=== PATIENT | male | born 1950 | race Asian ===

== ENCOUNTER 2018-05-04 00:11 | Inpatient (IN) | payer OTHER ==
[~2018-05-04] VITALS: Ht 172.7 cm; Wt 78.0 kg
[2018-05-04 03:36] LABS: PLATELET COUNT 159 x10^3mcL (130-400)
[2018-05-04 03:38] LABS: BASOPHIL % 0 % (0-2)
[2018-05-04 03:42] LABS: CALCIUM 7.8 mg/dL (8.5-10.1); CARBON DIOXIDE 26.4 mmol/L (21-32); CHLORIDE SERUM 105 mmol/L (98-107); CREATININE SERUM 1.1 mg/dL (0.7-1.3); GFR1 > 60 mL/min; GLUCOSE SERUM 115 mg/dL (74-106); POTASSIUM SERUM 3.5 mmol/L (3.5-5.1); SODIUM SERUM 139 mmol/L (136-145)
[2018-05-04 03:43] LABS: ALBUMIN 3.4 g/dL (3.4-5.0); ALKALINE PHOSPHATASE 180 U/L (46-116); ALT/SGPT 181 U/L (16-63); AST/SGOT 328 U/L (15-37); BILIRUBIN TOTAL 3.8 mg/dL (0.20-1.00); LIPASE 145 IU/L (73-393); TOTAL PROTEIN, SERUM 6.3 g/dL (6.4-8.2)
[2018-05-04 05:02] LABS: CHOLESTEROL/HDL RATIO 3.1; MAGNESIUM 1.8 mg/dL (1.8-2.4); PHOSPHOROUS 1.7 mg/dL (2.5-4.9)
[2018-05-04 05:10] LABS: T3 TOTAL 0.83 ng/mL
[2018-05-04 05:46] LABS: FREE T4 1.4 ng/dL (0.76-1.46); FREE THYROXINE INDEX 2.1 ug/dL (1.4-4.5); T4(THYROXINE) 6.3 ug/dL (4.7-13.3)
[2018-05-04] MEDS ORDERED: TAMSULOSIN HYD0.4 M1 PO (07:15)
[2018-05-04] MEDS ORDERED: FINASTERIDE5 M1 PO (07:17)
[2018-05-04 08:55] VITALS: BP 119/78
[2018-05-04 13:15] VITALS: BP 106/67
[2018-05-04 17:56] VITALS: BP 116/71
[2018-05-04 20:48] VITALS: BP 105/62
[2018-05-04 21:51] LABS: UA SPECIFIC GRAVITY 1.025 (1.005-1.035); microscopic required? YES; urine erythrocyte TRACE (NEGATIVE)
[2018-05-05] VITALS (8 sets, daily range): BP systolic 105–130; BP diastolic 58–81
[2018-05-05 06:44] LABS: BASOPHIL % 0.1 % (0-2); RED CELL DISTRIBUTION WIDTH 13.6 % (11.5-14.5)
[2018-05-05 07:08] LABS: BILIRUBIN TOTAL 9.42 mg/dL (0.20-1.00); CALCIUM 8.3 mg/dL (8.5-10.1); CARBON DIOXIDE 24.7 mmol/L (21-32); CREATININE SERUM 1.3 mg/dL (0.7-1.3); PHOSPHOROUS 2.4 mg/dL (2.5-4.9); POTASSIUM SERUM 3.8 mmol/L (3.5-5.1)
[2018-05-05 07:11] LABS: ALBUMIN 2.8 g/dL (3.4-5.0); TOTAL PROTEIN, SERUM 5.6 g/dL (6.4-8.2)
[2018-05-05 07:12] LABS: PLATELET COUNT 124 x10^3mcL (130-400)
[2018-05-06 05:13] VITALS: BP 125/70
[2018-05-06 06:46] LABS: BASOPHIL % 0.3 % (0-2); PLATELET COUNT 130 x10^3mcL (130-400); RED CELL DISTRIBUTION WIDTH 13.8 % (11.5-14.5)
[2018-05-06 06:58] LABS: CALCIUM 7.5 mg/dL (8.5-10.1); CARBON DIOXIDE 21.3 mmol/L (21-32); CHLORIDE SERUM 106 mmol/L (98-107); GFR1 > 60 mL/min; GLUCOSE SERUM 69 mg/dL (74-106); PHOSPHOROUS 2.4 mg/dL (2.5-4.9); POTASSIUM SERUM 3.4 mmol/L (3.5-5.1); SODIUM SERUM 141 mmol/L (136-145)
[2018-05-06 08:10] LABS: ALBUMIN 2.5 g/dL (3.4-5.0); BILIRUBIN DIRECT 6.89 mg/dL (0.0-0.2); BILIRUBIN TOTAL 7.6 mg/dL (0.20-1.00); TOTAL PROTEIN, SERUM 5.5 g/dL (6.4-8.2)
[2018-05-06 09:02] VITALS: BP 120/74
[2018-05-06 12:18] VITALS: BP 124/69
[2018-05-06 17:50] VITALS: BP 135/80
[2018-05-06 21:36] VITALS: BP 137/77
[2018-05-07 05:52] VITALS: BP 137/79
[2018-05-07 06:51] LABS: ALKALINE PHOSPHATASE 139 U/L (46-116); ALT/SGPT 87 U/L (16-63); AST/SGOT 66 U/L (15-37); BILIRUBIN TOTAL 6.06 mg/dL (0.20-1.00); CARBON DIOXIDE 25.5 mmol/L (21-32); CHLORIDE SERUM 108 mmol/L (98-107); GFR1 > 60 mL/min; GLUCOSE SERUM 105 mg/dL (74-106); PHOSPHOROUS 1.9 mg/dL (2.5-4.9); POTASSIUM SERUM 3.5 mmol/L (3.5-5.1); SODIUM SERUM 139 mmol/L (136-145)
[2018-05-07 06:53] LABS: ALBUMIN 2.4 g/dL (3.4-5.0); TOTAL PROTEIN, SERUM 5.5 g/dL (6.4-8.2)
[2018-05-07 07:07] LABS: BASOPHIL % 0.4 % (0-2); RED CELL DISTRIBUTION WIDTH 13.4 % (11.5-14.5)
[2018-05-07 07:18] LABS: PLATELET COUNT 125 x10^3mcL (130-400)
[2018-05-07 09:21] VITALS: BP 134/88
[2018-05-07 13:24] VITALS: BP 142/78
[2018-05-07 17:42] VITALS: BP 139/82
[2018-05-07 21:20] VITALS: BP 142/82
[2018-05-08 05:56] VITALS: BP 145/86
[2018-05-08 06:23] LABS: BASOPHIL % 0.4 % (0-2); PLATELET COUNT 138 x10^3mcL (130-400); RED CELL DISTRIBUTION WIDTH 13.9 % (11.5-14.5)
[2018-05-08 06:37] LABS: CALCIUM 8.5 mg/dL (8.5-10.1); CARBON DIOXIDE 28.6 mmol/L (21-32); CHLORIDE SERUM 107 mmol/L (98-107); CREATININE SERUM 1.1 mg/dL (0.7-1.3); GFR1 > 60 mL/min; GLUCOSE SERUM 100 mg/dL (74-106); PHOSPHOROUS 3.2 mg/dL (2.5-4.9); POTASSIUM SERUM 3.8 mmol/L (3.5-5.1); SODIUM SERUM 139 mmol/L (136-145)
[2018-05-08 08:55] VITALS: BP 153/86
[2018-05-08 10:40] LABS: ALBUMIN 2.5 g/dL (3.4-5.0); BILIRUBIN DIRECT 3.67 mg/dL (0.0-0.2); BILIRUBIN TOTAL 4.75 mg/dL (0.20-1.00); TOTAL PROTEIN, SERUM 5.8 g/dL (6.4-8.2)
[2018-05-08 13:36] VITALS: BP 142/82
[2018-05-08 17:16] VITALS: BP 150/56
[2018-05-08 20:41] VITALS: BP 140/81
[2018-05-09 05:47] VITALS: BP 148/76
[2018-05-09 06:11] LABS: BASOPHIL % 0.5 % (0-2); PLATELET COUNT 151 x10^3mcL (130-400); RED CELL DISTRIBUTION WIDTH 13.3 % (11.5-14.5)
[2018-05-09 06:39] LABS: ALBUMIN 2.6 g/dL (3.4-5.0); ALKALINE PHOSPHATASE 140 U/L (46-116); ALT/SGPT 99 U/L (16-63); AST/SGOT 77 U/L (15-37); BILIRUBIN DIRECT 2.54 mg/dL (0.0-0.2); BILIRUBIN TOTAL 3.27 mg/dL (0.20-1.00); CALCIUM 8.6 mg/dL (8.5-10.1); CARBON DIOXIDE 26.8 mmol/L (21-32); CHLORIDE SERUM 107 mmol/L (98-107); CREATININE SERUM 1.1 mg/dL (0.7-1.3); GFR1 > 60 mL/min; GLUCOSE SERUM 103 mg/dL (74-106); PHOSPHOROUS 3.3 mg/dL (2.5-4.9); POTASSIUM SERUM 3.3 mmol/L (3.5-5.1); SODIUM SERUM 140 mmol/L (136-145); TOTAL PROTEIN, SERUM 6.3 g/dL (6.4-8.2)
[2018-05-09 08:30] VITALS: BP 144/80
[2018-05-09 17:21] VITALS: BP 150/80
[2018-05-10 00:17] VITALS: BP 155/82
[2018-05-10 00:51] VITALS: BP 145/85
[2018-05-10 01:59] VITALS: BP 135/74
[2018-05-10 05:13] VITALS: BP 152/88
[2018-05-10 07:04] LABS: ALKALINE PHOSPHATASE 139 U/L (46-116); ALT/SGPT 115 U/L (16-63); AST/SGOT 90 U/L (15-37); BILIRUBIN DIRECT 2.34 mg/dL (0.0-0.2); CALCIUM 7.8 mg/dL (8.5-10.1); CARBON DIOXIDE 25.9 mmol/L (21-32); CHLORIDE SERUM 103 mmol/L (98-107); GFR1 > 60 mL/min; GLUCOSE SERUM 141 mg/dL (74-106); MAGNESIUM 1.9 mg/dL (1.8-2.4); PHOSPHOROUS 4.3 mg/dL (2.5-4.9); POTASSIUM SERUM 3.8 mmol/L (3.5-5.1); SODIUM SERUM 138 mmol/L (136-145); TOTAL PROTEIN, SERUM 6.2 g/dL (6.4-8.2)
[2018-05-10 07:09] LABS: ALBUMIN 2.7 g/dL (3.4-5.0)
[2018-05-10 07:36] LABS: BASOPHIL % 0.1 % (0-2); PLATELET COUNT 172 x10^3mcL (130-400)
[2018-05-10 17:03] VITALS: BP 124/79
[2018-05-10 20:11] VITALS: BP 123/84
[2018-05-11 05:31] VITALS: BP 132/79
[2018-05-11 06:11] LABS: BASOPHIL % 0.3 % (0-2); PLATELET COUNT 198 x10^3mcL (130-400); RED CELL DISTRIBUTION WIDTH 13.4 % (11.5-14.5)
[2018-05-11 06:29] LABS: ALKALINE PHOSPHATASE 125 U/L (46-116); ALT/SGPT 129 U/L (16-63); AST/SGOT 75 U/L (15-37); BILIRUBIN DIRECT 1.84 mg/dL (0.0-0.2); CALCIUM 8.7 mg/dL (8.5-10.1); CARBON DIOXIDE 26.9 mmol/L (21-32); CHLORIDE SERUM 105 mmol/L (98-107); CREATININE SERUM 1.2 mg/dL (0.7-1.3); GFR1 > 60 mL/min; GLUCOSE SERUM 111 mg/dL (74-106); MAGNESIUM 2.1 mg/dL (1.8-2.4); PHOSPHOROUS 2.9 mg/dL (2.5-4.9); POTASSIUM SERUM 3.4 mmol/L (3.5-5.1); SODIUM SERUM 141 mmol/L (136-145); TOTAL PROTEIN, SERUM 6.4 g/dL (6.4-8.2)
[2018-05-11 06:35] LABS: ALBUMIN 2.8 g/dL (3.4-5.0)
[2018-05-11 09:55] VITALS: BP 142/73
[2018-05-11] MEDS ORDERED: ACT300 PO (15:44)
[2018-05-11 18:43] VITALS: BP 134/87
[2018-05-11 20:37] VITALS: BP 123/75
[2018-05-11] MEDS ORDERED: MOT800 PO (21:23)
[2018-05-12 05:30] VITALS: BP 126/80
[2018-05-12 07:39] LABS: BASOPHIL % 0.2 % (0-2); PLATELET COUNT 206 x10^3mcL (130-400); RED CELL DISTRIBUTION WIDTH 13.8 % (11.5-14.5)
[2018-05-12 08:01] LABS: ALKALINE PHOSPHATASE 124 U/L (46-116); ALT/SGPT 109 U/L (16-63); AST/SGOT 57 U/L (15-37); BILIRUBIN DIRECT 1.62 mg/dL (0.0-0.2); BILIRUBIN TOTAL 2.4 mg/dL (0.20-1.00); CALCIUM 7.9 mg/dL (8.5-10.1); CARBON DIOXIDE 28.8 mmol/L (21-32); CHLORIDE SERUM 104 mmol/L (98-107); GFR1 > 60 mL/min; GLUCOSE SERUM 104 mg/dL (74-106); MAGNESIUM 2.2 mg/dL (1.8-2.4); PHOSPHOROUS 3.2 mg/dL (2.5-4.9); POTASSIUM SERUM 3.4 mmol/L (3.5-5.1); SODIUM SERUM 141 mmol/L (136-145); TOTAL PROTEIN, SERUM 6.5 g/dL (6.4-8.2)
[2018-05-12 08:02] LABS: ALBUMIN 2.8 g/dL (3.4-5.0)
[2018-05-12 09:33] VITALS: BP 114/66
[2018-05-12] MEDS ORDERED: COL100 PO (10:47)
[2018-05-12] MEDS ORDERED: SEN PO (10:48)
[2018-05-12] MEDS ORDERED: AMITIZA24 MC1 PO (10:48)
[2018-05-12] MEDS ORDERED: ZOFI IV (10:49)
[2018-05-12] MEDS ORDERED: FLA250 PO (11:23)
== END 2018-05-12 12:14 | disposition home or self-care (01) | DRG 263 ==
LOC: ED 00:11 → MU 04:20 → DU 04:20 → MU 08:45 → DU 05-05 12:12 → MU 05-08 14:06
PROVIDERS: Emergency Medicine; Family Medicine; Internal Medicine; Internal Medicine Gastroenterology
PROC: 0DJ08ZZ Inspection of Upper Intestinal Tract, Via Natural or Artificial Opening Endoscopic (ICD-10-PCS; 2018-05-05)
PROC: 0FC98ZZ Extirpation of Matter from Common Bile Duct, Via Natural or Artificial Opening Endoscopic (ICD-10-PCS; principal; 2018-05-05 09:00)
PROC: 0F798DZ Dilation of Common Bile Duct with Intraluminal Device, Via Natural or Artificial Opening Endoscopic (ICD-10-PCS; 2018-05-05 09:30)
PROC: BF131ZZ Fluoroscopy of Gallbladder and Bile Ducts using Low Osmolar Contrast (ICD-10-PCS; 2018-05-05 09:30)
PROC: 0FT44ZZ Resection of Gallbladder, Percutaneous Endoscopic Approach (ICD-10-PCS; 2018-05-09)
PROC: 0DNW4ZZ Release Peritoneum, Percutaneous Endoscopic Approach (ICD-10-PCS; 2018-05-09)
DX: K80.62 Calculus of gallbladder and bile duct with acute cholecystitis without obstruction (principal); N17.0 Acute kidney failure with tubular necrosis; E43 Unspecified severe protein-calorie malnutrition; E87.2 Acidosis; E83.39 Other disorders of phosphorus metabolism; C16.9 Malignant neoplasm of stomach, unspecified; K66.0 Peritoneal adhesions (postprocedural) (postinfection); N40.0 Benign prostatic hyperplasia without lower urinary tract symptoms; R73.03 Prediabetes; F17.210 Nicotine dependence, cigarettes, uncomplicated; N20.0 Calculus of kidney; Z79.899 Other long term (current) drug therapy
CPT/HCPCS: 43235; 43260; 82962; 83880; 84439; 94150; C1769; C2625; J0330; J1170; J1610; J2250; J2270; J2405; J2543; J2704; J3010; J3490; J7030; J7040; J7120; Q0092; Q9967